=== PATIENT | female | born 1980 | race Hispanic/Latino ===

== ENCOUNTER 2020-06-09 13:02 | Outpatient (CLI) | payer OTHER ==
[2020-06-10 06:06] LABS: SARS-CoV-2 MS2 Positive; SARS-CoV-2 N Gene Negative; SARS-CoV-2 S Gene Negative; SARS-CoV-2 by NAA Not Detected (NotDetected); SARS-CoV-2 orf1ab Negative
== END 2020-06-09 13:03 | disposition home or self-care (01) ==
LOC: LABBT 13:02
PROVIDERS: ATTEND Ophthalmology Retina Specialist
DX: Z01.812 Encounter for preprocedural laboratory examination (principal); Z20.822 Contact with and (suspected) exposure to COVID-19; H33.22 Serous retinal detachment, left eye; H54.7 Unspecified visual loss
CPT/HCPCS: 87635; U0003

== ENCOUNTER 2020-06-11 06:24 | Day surgery (SDC) | payer OTHER ==
[2020-06-09 14:45] VITALS: BMI 36.0
[~2020-06-11 06:24] MED LIST: Fluorouracil 100 MG, Enoxaparin Sodium 25 MG, EPINEPHrine 0.3 MG in Ophthalmic Irrigati... IRR SCH
[2020-06-11] MEDS ORDERED: Phenylephrine 2.5% Ophth Soln 5 ML BOT ONE (06:43)
[2020-06-11] MEDS ORDERED: Cyclopentolate 1% Opth Drop 2 ML BOT ONE (06:43)
[2020-06-11] MEDS ORDERED: PROPOFOL 20 ML ONE (08:42)
[2020-06-11] MEDS ORDERED: Midazolam HCl 2 mg/2 ml Vial ONE (08:42)
[2020-06-11] MEDS ORDERED: Fentanyl 100 MCG/2 ML VIAL ONE (08:42)
[2020-06-11] MEDS ORDERED: Lidocaine 4% PF 5 ML AMP ONE (12:10)
[2020-06-11] MEDS ORDERED: Lidocaine 1% PF 5 ML VIAL ONE (12:10)
[2020-06-11] MEDS ORDERED: CEFAZOLIN 1 GM VIAL ONE (12:10)
[2020-06-11] MEDS ORDERED: PROPOFOL 200 MG/20 ML VIAL ONE (12:10)
[2020-06-11] MEDS ORDERED: Maxitrol 0.1% Opth Oint 3.5 GM TUBE ONE (12:10)
[2020-06-11] MEDS ORDERED: Triamcinolone 40 MG/ML VIAL ONE (12:10)
[2020-06-11] MEDS ORDERED: Bupivacaine PF 0.75% SDV 10 ML ONE (12:10)
--- NOTE | 2020-06-11 19:17 | OP ---
DATE OF PROCEDURE: 06/11/2020 PREOPERATIVE DIAGNOSIS: Rhegmatogenous retinal detachment, left eye. POSTOPERATIVE DIAGNOSIS: Rhegmatogenous retinal detachment, left eye. PROCEDURES PERFORMED: Pars plana vitrectomy and retinal detachment repair, left eye. ANESTHESIA: Local with monitored anesthesia care. DESCRIPTION OF PROCEDURE: The patient was identified in the preoperative holding area. Appropriate informed consent for the planned surgical procedure on the left eye had been obtained. The patient was transported to the operative suite. Appropriate cardiopulmonary monitoring was established. Local anesthesia was obtained using retrobulbar modified Van Lint lid block using 50:50 mixture of 4% lidocaine and 0.75% bupivacaine. The patient was prepped and draped in usual sterile manner for ophthalmic surgery, left eye. Lid speculum was placed in the left eye. 25-gauge trocar was placed through conjunctiva and sclera superotemporally, inferotemporally, and superonasally. Infusion line was placed inferotemporally. Light pipe vitreous cutter was inserted into the eye. Core vitrectomy was performed. Attention was turned to the retinal holes. Holes were noted at 12 o'clock, 4 o'clock, and 8 o'clock position with subretinal fluid being all temporally at the 12 o'clock and 4 o'clock positions. Posterior drained retinotomy was created after 360 trimming of the vitreous base was performed using wide field viewing system. Complete air-fluid exchange was performed by 10 minutes being allowed for fluid to drain posteriorly. 360 laser was placed using Endolaser delivery device. 28% sulfur hexafluoride gas was infused into the eye. Trocars were removed and the superior sclerotomy was suture closed. Retrobulbar Kenalog and subconjunctival Ancef were placed. Antibiotic ointment was placed. The eye was patched and shielded. The patient was taken to postop recovery unit in good condition, having suffered no immediate perioperative complications. The patient was instructed to keep patch and shield on, position on the left side down. Followup appointment with Dr. Nayak. Job ID: [id number]
== END 2020-06-11 10:36 | disposition home or self-care (01) ==
LOC: SDC 06:24
PROVIDERS: ATTEND Ophthalmology Retina Specialist
PROC: 08T53ZZ Resection of Left Vitreous, Percutaneous Approach (ICD-10-PCS; principal; 2020-06-11)
DX: H33.022 Retinal detachment with multiple breaks, left eye (principal); E66.9 Obesity, unspecified; Z68.36 Body mass index [BMI] 36.0-36.9, adult
CPT/HCPCS: 67025; J0171; J1650; J2250; J2704; J3010; J9190

== ENCOUNTER 2024-06-05 17:36 | Emergency (ER) | payer BC, SELFPAY ==
[2024-06-05 18:33] LABS: #Basophils 0.06 10x3/uL (0.0-0.2); %Basophils 0.8 % (0.0-1.0); %Eosinophils 1.3 % (0.0-10.0); %Lymphocytes 32.3 % (21.0-51.0); %Monocytes 6.3 % (0.0-10.0); %Neutrophils 58.9 % (42.0-75.0); Hematocrit 42.7 % (36.0-47.0); Hemoglobin 13.9 g/dL (12.0-16.0); Mean Corpuscular HGB CONC 32.6 g/dL (32.0-36.0); Mean Corpuscular Hemoglobin 26.5 pg (27.0-31.0); Mean Corpuscular Volume 81.3 fL (78.0-98.0); Mean Platelet Volume 9.3 fL (7.4-10.4); Platelet Count 279 10x3/uL (130-400); RBC Distribution Width 13.2 % (11.5-14.5); Red Blood Cell (RBC) Count 5.25 mill/uL (4.20-5.40)
[2024-06-05 18:49] LABS: Calc. Creatinine Clearance 0 mL/min (70-130); Estimated GFR 79
[2024-06-05 18:51] LABS: ALT (SGPT) 10 U/L (8-55); AST (SGOT) 19 U/L (5-34); Alkaline Phosphatase 94 U/L (40-110); Anion Gap 13 mmol/L (10-20); BUN (Urea Nitrogen) 19 mg/dL (7.0-18.7); Bilirubin, Total 0.3 mg/dL (0.2-1.2); Calcium 8.8 mg/dL (7.8-10.44); Carbon Dioxide 22 mmol/L (22-29); Chloride 107 mmol/L (98-107); Glucose 95 mg/dL (70-105); Potassium 3.8 mmol/L (3.5-5.1); Sodium 138 mmol/L (136-145)
[2024-06-05 18:52] LABS: Troponin I Less than 0.010 ng/mL (< 0.028)
[2024-06-05] MEDS ORDERED: Lidocaine Viscous Sol 2% 15 ml UD Cup ONE (19:12)
[2024-06-05] MEDS ORDERED: Mag-Al 1200 mg/1200 mg/30 ML UDCUP ONE (19:12)
[2024-06-05] MEDS ORDERED: Ketorolac Tromethamine 30 MG (1 mL) VIAL ONE (19:12)
[2024-06-05] MEDS ORDERED: Acetaminophen 325 MG TAB ONE (19:13)
== END 2024-06-05 20:22 | disposition home or self-care (01) ==
LOC: ERS 17:36
DX: R07.9 Chest pain, unspecified (principal)
CPT/HCPCS: 36415; 71045; 80053; 83690; 84484; 85025; 93005; 96372; J1885